=== PATIENT | female | born 1945 | race Caucasian/White ===

== ENCOUNTER 2019-07-06 19:21 | Inpatient (IN) | payer MEDICARE ==
[~2019-07-06] VITALS: Ht 167.6 cm; Wt 74.8 kg
--- NOTE | 2019-07-06 19:42 | NUR ---
PT CAME TO ER BIB RA C/O SOB. PT WAS ORIGINALLY 79% O2 SATURATION UPON ARRIVAL TO ED. PT IS PLACED ON NONREBREATHER OF 15L WITH 100% 02 SATURATION. PT IS ALERT AND AWAKE. PT IS ABLE TO ANSWER QUESTIONS AND RESPOND WITH WORDS AND NODDING. CONNECTED TO CARDIAC MONITORING.
--- NOTE | 2019-07-06 19:46 | NUR ---
RT AT BEDSIDE FOR BREATHING TREATMENT
--- NOTE | 2019-07-06 19:47 | NUR ---
BLOOD DRAWN AND SENT TO LAB
[2019-07-06 19:54] LABS: HEMOGLOBIN 7.3 g/dL (11.5-14.8); LYMPHOCYTES # (AUTO) 0.6 /CMM (0.8-4.8); NEUTROPHILS # (AUTO) 0.2 /CMM (1.8-8.9)
[2019-07-06 20:00] LABS: BASOPHILS % (AUTO) 0.1 % (0.0-2.0); EOSINOPHILS % (AUTO) 0.3 % (0.0-6.0); HEMATOCRIT 22 % (33-45); LYMPHOCYTES % (AUTO) 76.7 % (20.0-44.0); MEAN CORPUSCULAR HGB CONC 34 g/dl (31.0-36.0); MEAN CORPUSCULAR VOLUME 87 fL (82-100); NEUTROPHILS % (AUTO) 21.9 % (43.0-81.0); RED BLOOD CELL COUNT(AUTO) 2.48 MIL/uL (4.0-5.2)
[2019-07-06] MEDS ORDERED: IPRATROPIUM NEB FS 0.5 MG/2.5 ML AMPUL.NEB NEB ONE (20:00)
[2019-07-06] MEDS ORDERED: ALBUTEROL FS 2.5 MG/3 ML VIAL.NEB NEB ONE ×2 (20:00→21:00)
--- NOTE | 2019-07-06 20:02 | NUR ---
XRAY AT BEDSIDE
[2019-07-06 20:09] LABS: PLATELET COUNT (AUTO) 8 /CMM (150-450); WHITE BLOOD COUNT (AUTO) 0.8 K/uL (4.3-11.0)
[2019-07-06] MEDS ORDERED: methylPREDNISolone SOD SUCC 125 MG/2ML VIAL ONE (20:11)
[2019-07-06] MEDS ORDERED: IPRATROPIUM NEB FS 0.5 MG/2.5 ML AMPUL.NEB ONE (20:13)
[2019-07-06] MEDS ORDERED: ALBUTEROL FS 2.5 MG/3 ML VIAL.NEB ONE ×2 (20:13→20:41)
[2019-07-06 20:15] LABS: CARBON DIOXIDE 22 mmol/L (21-32); CHLORIDE 106 mmol/L (98-107); CREATININE 1.6 mg/dL (0.6-1.3); GLUCOSE 122 mg/dL (74-106); POTASSIUM 4.5 mmol/L (3.5-5.1); SODIUM SERUM 139 mmol/L (136-145); UREA NITROGEN, BLOOD 48 mg/dL (7-18)
[2019-07-06 20:19] LABS: ALANINE AMINOTRANSFERASE 70 U/L (12-78); ALBUMIN 1.9 g/dL (3.4-5.0); ALKALINE PHOSPHATASE 75 U/L (46-116); ASPARTATE AMINOTRANSFERASE 63 U/L (15-37); B-TYPE NATRIURETIC PEPTIDE 13738 PG/ML (0-125); BILIRUBIN,DIRECT 0.3 mg/dL (0.0-0.2); BILIRUBIN,TOTAL 0.5 mg/dL (0.2-1.0); TOTAL PROTEIN, SERUM 5.2 g/dL (6.4-8.2)
[2019-07-06] MEDS ORDERED: PIPERACILLIN /TAZOBACTAM 3.375 G VIAL IV ONE (20:28)
[2019-07-06] MEDS ORDERED: VANCOMYCIN 1 GM in IV D5W 250 ML IV ONE (20:30)
[2019-07-06] MEDS ORDERED: PIPERACILLIN /TAZOBACTAM 3.375 G in IV D5W 50 ML IV ONE (20:30)
[2019-07-06] MEDS ORDERED: methylPREDNISolone SOD SUCC 125 MG/2ML VIAL IV ONE (20:30)
[2019-07-06] MEDS ORDERED: IV NS 0.9% 1,000 ML BAG IV ONE (20:30)
[2019-07-06] MEDS ORDERED: VANCOMYCIN 1 GM VIAL ONE (20:35)
[2019-07-06] MEDS ORDERED: FILGRASTIM (300 MCG) 300 MCG/ML VIAL SQ STA (20:38)
[2019-07-06 21:22] LABS: BAND % (MANUAL) 1 % (0.0-5.0); LYMPHOCYTES % (MANUAL) 78 % (16-48); METAMYELOCYTES % 1 % (0-0); MONOCYTES % (MANUAL) 6 % (0-11.0); NEUTROPHILS % (MANUAL) 14 (42-76)
[2019-07-06] MEDS ORDERED: MAG HYDROX/AL HYDROX/SIMETH 30 ML UDC PO PRN (21:30)
[2019-07-06] MEDS ORDERED: ONDANSETRON HCL/PF 4 MG/2 ML VIAL IVP PRN (21:30)
[2019-07-06] MEDS ORDERED: HYDROCODONE/APAP 5/325MG 1 EACH TABLET PO PRN (21:30)
[2019-07-06] MEDS ORDERED: Z GUARD REMEDY 2 OZ OINT TP PRN (21:30)
[2019-07-06] MEDS ORDERED: MORPHINE SULFATE INJ 2 MG/ML DISP.SYRIN IV PRN (21:30)
[2019-07-06] MEDS ORDERED: ACETAMINOPHEN 325 MG TABLET PO PRN (21:30)
[2019-07-06] MEDS ORDERED: MAGNESIUM HYDROXIDE 30 ML UDC PO PRN (21:30)
[2019-07-06] MEDS ORDERED: ZOLPIDEM TARTRATE 5 MG TABLET PO PRN (21:30)
[2019-07-06] MEDS ORDERED: MORPHINE SULFATE INJ 2 MG/ML DISP.SYRIN ONE (21:37)
[2019-07-06] MEDS ORDERED: NOREPINEPHRINE 4 MG/4 ML AMPUL IV ONE (21:55)
[2019-07-06] MEDS ORDERED: MORPHINE SULFATE INJ 2 MG/ML DISP.SYRIN IV ONE (22:00)
[2019-07-06] MEDS ORDERED: NOREPINEPHRINE 8 MG in IV D5W 500 ML IV ONE (22:00)
--- NOTE | 2019-07-06 22:21 | NUR ---
SUPERVISOR TELEVISION CHASSIS REPAIR AT BEDSIDE FOR REDRAWING OF TROPONIN
--- NOTE | 2019-07-06 22:56 | NUR ---
US AT BEDSIDE
[2019-07-07] VITALS (59 sets, daily range): BP systolic 45–160; BP diastolic 15–119
--- NOTE | 2019-07-07 00:20 | NUR ---
REPORT GIVEN TO ED RN FOR ALANA.
--- NOTE | 2019-07-07 00:31 | NUR ---
URINE COLLECTED AND SENT TO LAB
[2019-07-07 00:36] LABS: APPEARANCE,URINE Clear (CLEAR); BILIRUBIN,URINE Negative (NEGATIVE); BLOOD, URINE Trace-intact Ery/uL (NEGATIVE); COLOR,URINE Yellow (YELLOW); KETONES,URINE Negative (NEGATIVE); LEUKOCYTE ESTERASE ,URINE Negative (NEGATIVE); NITRITE, URINE Negative (NEGATIVE); PROTEIN,URINE 100 mg/dl (NEGATIVE); UGLUCOSE Negative (NEGATIVE); UROBILINOGEN,URINE 0.2 EU/dL (0.2)
--- NOTE | 2019-07-07 00:53 | NUR ---
PT TRANSFERRED TO ICU FROM ER, WITHOUT COMPLICATION AND PATIENT REMAINED STABLE, AND PLACED BACK ON BIPAP WITH PREVIOUS SETTINGS. CHARGE NURSE ED AT BEDSIDE AWARE AND RECEIVED PATIENT.
[2019-07-07 01:07] LABS: BACTERIA,URINE None seen /HPF (None Seen); RBC,URINE 0-2 /HPF (0-2); SQUAMOUS EPITHELIAL CELL,UR Few /HPF (None Seen); WBC,URINE 0-2 /HPF (0-3)
--- NOTE | 2019-07-07 01:30 | NUR ---
RN NOTES ADMITTED PATIENT FROM ER WITH BIPAP 15/ RATE 14 FIO2 40% PLACED BY RT. AOX1 LETHARGIC UNABLE TO ANSWER COMPLEX QUESTION. DIAGNOSED WITH RESP. FAILURE, SEPSIS, SEV, NEUTROPENIA AND THROMBOCYTOPENIA PER DR. DAVEY. PLACED PATIENT IN REVERSE ISOLATION. WITH MULTIPLE PMH. ST ON TELE MONITOR. MULTIPLE DISCOLORATION PRESENT. IV SITE ON RH G 18 AND LFA G 22 INTACT AND PATENT. F/C DRAINED WITH WALLACE COLOR URINE. KEPT OFF FROM THE FLOOR. HGB 7.3 WITH ORDER TO GIVE 1 UNIT PRBC AND 2UNIT OF PLATELETS EMERGENCY TX. KEPT PT CLEAN AND DRY. NURSING MEASURES PROVIDED.
[2019-07-07] MEDS: methylPREDNISolone SOD SUCC 40 MG/ML VIAL IV SCH ×3 (01:57→11:05)
[2019-07-07] MEDS ORDERED: PIPERACILLIN /TAZOBACTAM 3.375 G VIAL IV ONE (02:14)
[2019-07-07] MEDS ORDERED: PIPERACILLIN /TAZOBACTAM 3.375 G in IV D5W 50 ML IV ONE (03:00)
[2019-07-07] MEDS ORDERED: NOREPINEPHRINE 4 MG/4 ML AMPUL IV ONE (03:17)
[2019-07-07] MEDS ORDERED: NOREPINEPHRINE 16 MG in IV D5W 500 ML IV PRN (03:30)
--- NOTE | 2019-07-07 03:30 | NUR ---
RN NOTES CALLED AND SPOKE WITH DR. DAVEY INFORMED THAT THE SPOUSE IS UNABLE TO REACH, PER MD PATIENT SPOUSE IS ALSO IN THE HOSPITAL. AND ITS OK TO TRANSFUSE BLOOD NOW FOR EMERGENCY SITUATION AND THEY WILL SIGN THE CONSENT.
--- NOTE | 2019-07-07 04:02 | NUR ---
RN NOTES STARTED FIRST BAG OF PLATELET. (SEE VS ON TRANSFUSION)
[2019-07-07 04:33] LABS: EOSINOPHILS % (AUTO) 0.1 % (0.0-6.0); LYMPHOCYTES # (AUTO) 0.6 /CMM (0.8-4.8); LYMPHOCYTES % (AUTO) 81.4 % (20.0-44.0); MEAN CORPUSCULAR HGB CONC 33 g/dl (31.0-36.0); MEAN CORPUSCULAR VOLUME 89 fL (82-100); MONOCYTES # (AUTO) 0.1 /CMM (0.1-1.30); MONOCYTES % (AUTO) 17.4 % (2.0-12.0); NEUTROPHILS % (AUTO) 1.1 % (43.0-81.0); RED BLOOD CELL COUNT(AUTO) 2.11 MIL/uL (4.0-5.2)
[2019-07-07 04:50] LABS: B-TYPE NATRIURETIC PEPTIDE 26794 PG/ML (0-125); CARBON DIOXIDE 22 mmol/L (21-32); CHLORIDE 108 mmol/L (98-107); CREATININE 1.9 mg/dL (0.6-1.3); GLUCOSE 96 mg/dL (74-106); MAGNESIUM 1.7 mg/dL (1.8-2.4); PHOSPHORUS 3.1 mg/dL (2.5-4.9); POTASSIUM 4.4 mmol/L (3.5-5.1); SODIUM SERUM 140 mmol/L (136-145); UREA NITROGEN, BLOOD 53 mg/dL (7-18)
[2019-07-07 04:58] LABS: CALCIUM, SERUM 6.3 mg/dL (8.5-10.1)
[2019-07-07 05:07] LABS: WHITE BLOOD COUNT (AUTO) 0.7 K/uL (4.3-11.0)
[2019-07-07 05:08] LABS: HEMATOCRIT 19 % (33-45); HEMOGLOBIN 6.2 g/dL (11.5-14.8); PLATELET COUNT (AUTO) 4 /CMM (150-450)
[2019-07-07 05:20] LABS: CHOLESTEROL 103 mg/dL (<200); HDL CHOLESTEROL 51 mg/dL (40-60); LDL 21 mg/dL (0-99); THYROID STIMULATING HORMONE 0.021 uIU/mL (0.358-3.74); TRIGLYCERIDES 95 mg/dL (30-150)
--- NOTE | 2019-07-07 05:45 | NUR ---
RN NOTES 1UNIT OF PLATELET TOLERATED WELL. STARTED 2ND BAG OF PLATELETS AFEBRILE. VSS ST HR 121 ON TELE MONITOR. NO SIGNS OF ADVERSE REACTION NOTED WILL CONT. TO MONITOR.
[2019-07-07] MEDS ORDERED: FEE PK DOSING 1 MIN EA MC ONE (06:49)
--- NOTE | 2019-07-07 07:00 | NUR ---
RN NOTES CONTINUE ON BIPAP, 2ND UNIT OF PLATELET DONE AND GISELE. WELL WITHOUT ADVERSE REACTION. REMAINED ST ON TELEMONITOR. LEVOPHED ONGOING TITRATED PROTOCOL ORDERED. AFEBRILE. LATEST HGB. 6.2 PRBC NOT GIVEN YET INDUE TO PLATELETS. AND AWAITING FOR PICC LINE TO INSERT. KEPT PT CLEAN AND DRY.. ENDORSED TO AM SHIFT TO TRANSFUSE 1 UNIT PRBC AND EMERGENCY TX AND FOLLOW UP PICC LINE INSERTION.
--- NOTE | 2019-07-07 07:30 | NUR ---
RN NOTE: Received patient in bed, lethargic and drowsy with Bipap support. Patient on reverse isolation due to neutropenia. HOB elevated. NPO status. Patient was noted sinus tachycardia on the broiler manager HR 120. (R) hand 18G was infusing Levophed @10 mcg/min to keep the SBP >90mmHg. Coles catheter was noted with very minimal urine output tea color in color draining to gravity. Afebrile. Skin was warm to touch, but (B) UE were noted cool to touch. Will continue to monitor the patient's condition.
--- NOTE | 2019-07-07 07:39 | NUR ---
RN NOTE: Called and spoke with Amarilys (medical records staff) from [facility] and requested for a POLST. Faxed number [phone] was given. Awaiting for the POLST copy.
--- NOTE | 2019-07-07 08:00 | NUR ---
RN NOTE: Patient's bedside monitor cables were replaced, and the BP cuff was placed on the patient's (R) calf because the patient had a (R) breast mastectomy and a superficial thrombosis on the (L) arm.
[2019-07-07 08:29] LABS: NEUTROPHILS % (MANUAL) 5 (42-76)
[2019-07-07 08:30] LABS: LYMPHOCYTES % (MANUAL) 87 % (16-48); MONOCYTES % (MANUAL) 8 % (0-11.0)
[2019-07-07] MEDS ORDERED: FUROSEMIDE 40 MG/4 ML VIAL IV SCH (09:00)
[2019-07-07] MEDS ORDERED: PANTOPRAZOLE 40 MG VIAL IV SCH (09:00)
[2019-07-07 09:07] LABS: ABG BASE EXCESS -8.9 mmol/L; ABG OXYGEN SATURATION 97.4 % (92.0-98.5); ABG PCO2 42.2 mmHg (35.0-45.0); ABG PH 7.241 (7.350-7.450); ABG PO2 128.8 mmHg (75.0-100.0); AaDO2 107.9 mmHg; COHb 0.4 % (0.5-1.5); MetHb 1.1 % (0.0-1.5); O2Hb 95.9 % (94.0-97.0); SITE, ABG Right Brachial; VENT MODE, BG 15/5 RR14 40%
[2019-07-07] MEDS ORDERED: Magnesium 1GM/D5W 100ML PREMIX 100 ML IV SCH (09:10)
--- NOTE | 2019-07-07 09:30 | NUR ---
RN NOTE: Received a POLST from the patient's facility and it showed full code and it was signed by the patient back on 07/03/2019. Dr. Rivas was at the nursing station informed about this information. Per Dr. Rivas, try to reach the patient's Saul so this POLST can be verified. Spoke with Saul, and he verbalized that the patient wished that she can get chest compressions (CPR), but no intubation due to her complex medical history. Per Saul, he wanted Dr. Rivas to speak with the patient's card processing clerk Dr. Lock to coordinate the best plan for the patient.
[2019-07-07] MEDS ORDERED: PIPERACILLIN /TAZOBACTAM 3.375 G in IV D5W 50 ML IV SCH (10:00)
[2019-07-07] MEDS ORDERED: DOSE PER PHARMACY VORIconazole/VFEND XX PRN (12:30)
--- NOTE | 2019-07-07 12:30 | NUR ---
RN NOTE: Dr. Rivas called and informed the RN that he spoke with Dr. Lock (surgery aid) that Dr. Lock agreed that the patient is not a candidate for intubation. Patient's code status remained DNI at this time. Nevin Martell DNP was made aware of this. Patient's [id number], [id number] and [id number] were all present at the bedside and Nevin Martell DNP spoke with them at the bedside regarding the patient's current condition. Main decision maker Saul was at the hospital himself, and exchanges of telephone calls were made to coordinate the patient's care.
--- NOTE | 2019-07-07 12:55 | NUR ---
RN NOTE: Patient's Saul gave a telephone consent for the PICC line insertion of the patient and it was verified with KENTRELL Durant. Informed consent was signed by Nevin Martell DNP and filed to the patient's chart. PICC line nurse Valerie was at the bedside to insert the PICC line.
--- NOTE | 2019-07-07 14:00 | NUR ---
RN NOTE: Patient's was still noted with hypotension despite the Levophed support. Per Nevin Martell, ANN MARIE ok to add Vasopressin at this time. Informed KENTRELL Durant CN about this new medication order. PICC line nurse still at the bedside and was still trying to insert a PICC line for the patient.
--- NOTE | 2019-07-07 14:25 | NUR ---
RN NOTE: Hospitalist Nevin Martell DNP was informed about the medication reconciliation per request of Henry, pharmacist.
--- NOTE | 2019-07-07 14:54 | NUR ---
RN NOTE: Hospitalist Nevin Martell DNP called and informed the nurse that she spoke with tom Hughes regarding the patient's current situation. And the , Saul made a decision to keep the patient comfortable, DC the Bipap machine and put her on O2 2L/min via NC, and give a Morphine 2mg IV X1 and Morphine 2mg IV [id number] PRN for comfort. Order, noted and carried out. RT Alexis was made aware of the following orders for the Bipap. Coordinated the new orders to Henry, pharmacist as well. Patient's [id number] and a family friend was at the bedside. Explained to them about the new orders from the hospitalist after speaking with Saul.
[2019-07-07] MEDS ORDERED: MORPHINE SULFATE INJ 2 MG/ML DISP.SYRIN IV PRN (15:00)
[2019-07-07] MEDS ORDERED: VASOPRESSIN INJ 50 UNIT in IV D5W 497.5 ML IV PRN (15:00)
[2019-07-07] MEDS ORDERED: MORPHINE SULFATE INJ 2 MG/ML DISP.SYRIN IV ONE (15:00)
[2019-07-07] MEDS ORDERED: VORICONAZOLE 400 MG in IV D5W 250 ML IV SCH (15:00)
--- NOTE | 2019-07-07 15:10 | NUR ---
RN NOTE: Patient was noted with a labored breathing, Morphine 2mg IV x1 per hospitalist's order was given. patient was still noted tachycardic, but noted with less work of breathing. Will continue to monitor. Family remained at the bedside.
--- NOTE | 2019-07-07 15:27 | NUR ---
RN NOTE PT ON COMFORT CARE. PT ASYSTOLIC, APNEIC, AREFLEXIVE. PRONOUNCED AT 1527. FAMILY AT BEDSIDE.
--- NOTE | 2019-07-07 15:27 | NUR ---
RN NOTE: Patient was noted asystole on the tip puncher, no viable vital sign was noted. No heart beat was noted. Time of was pronounced at this time by KENTRELL Durant. Family remained at the bedside, and they called tom Hughes about the patient's time of . Gave the family privacy with the patient at this time.
--- NOTE | 2019-07-07 15:37 | NUR ---
RN NOTE: Called and spoke with Matilda from [facility] and patient was not a candidate as a donor. Patient was released by [facility] with referral number [id number].
--- NOTE | 2019-07-07 16:30 | NUR ---
RN NOTE: Post mortem care was rendered to the patient. Confirmed with tom Hughes that the patient will be send to the [facility] if no family member will be expected to see the patient.
--- NOTE | 2019-07-07 17:00 | NUR ---
RN NOTE: Patient was sent to the [facility] accompanied by the hospital security administrator with proper labels on the (R) great toe and outside the body bag.
[2019-07-07] MEDS ORDERED: MEROPENEM 1 G in IV NS 0.9% 100 ML IV SCH ×2 (18:00→22:00)
[2019-07-07] MEDS ORDERED: VANCOMYCIN 0.75 GM in IV D5W 250 ML IV SCH (20:00)
[2019-07-08] MEDS ORDERED: VORICONAZOLE 200 MG in IV D5W 250 ML IV SCH (15:00)
== END 2019-07-07 15:28 | disposition expired | DRG 871 ==
LOC: ER 19:30 → ICU 23:51
PROVIDERS: ADMIT Student in an Organized Health Care Education/Training Program; ATTEND Nurse Practitioner Acute Care
PROC: 06H033Z Insertion of Infusion Device into Inferior Vena Cava, Percutaneous Approach (ICD-10-PCS; principal; 2019-07-07)
PROC: B549ZZA Ultrasonography of Inferior Vena Cava, Guidance (ICD-10-PCS; 2019-07-07)
PROC: 30233N1 Transfusion of Nonautologous Red Blood Cells into Peripheral Vein, Percutaneous Approach (ICD-10-PCS; 2019-07-07)
PROC: 30233R1 Transfusion of Nonautologous Platelets into Peripheral Vein, Percutaneous Approach (ICD-10-PCS; 2019-07-07)
PROC: 5A09357 Assistance with Respiratory Ventilation, Less than 24 Consecutive Hours, Continuous Positive Airway Pressure (ICD-10-PCS; 2019-07-07)
DX: A41.9 Sepsis, unspecified organism (principal); J18.9 Pneumonia, unspecified organism; J96.01 Acute respiratory failure with hypoxia; E43 Unspecified severe protein-calorie malnutrition; I21.A1 Myocardial infarction type 2; J96.02 Acute respiratory failure with hypercapnia; N17.0 Acute kidney failure with tubular necrosis; Z51.5 Encounter for palliative care; R65.21 Severe sepsis with septic shock; J44.0 Chronic obstructive pulmonary disease with (acute) lower respiratory infection; C34.90 Malignant neoplasm of unspecified part of unspecified bronchus or lung; D68.69 Other thrombophilia; B44.9 Aspergillosis, unspecified; D61.818 Other pancytopenia; K92.2 Gastrointestinal hemorrhage, unspecified; E21.3 Hyperparathyroidism, unspecified; E86.0 Dehydration; Z87.891 Personal history of nicotine dependence; M81.0 Age-related osteoporosis without current pathological fracture; E03.9 Hypothyroidism, unspecified; C73 Malignant neoplasm of thyroid gland; I11.0 Hypertensive heart disease with heart failure; I50.9 Heart failure, unspecified; R74.0 Nonspecific elevation of levels of transaminase and lactic acid dehydrogenase [LDH]; E88.09 Other disorders of plasma-protein metabolism, not elsewhere classified; Z68.26 Body mass index [BMI] 26.0-26.9, adult; C50.919 Malignant neoplasm of unspecified site of unspecified female breast; D64.9 Anemia, unspecified
CPT/HCPCS: 36415; 36600; 71045-TC; 74018; 76770-TC; 80048-TC; 80061-TC; 80076-TC; 81000-TC; 82803-TC; 83605-TC; 83735-TC; 83880; 84100-TC; 84443-TC; 84484-TC; 85025-TC; 85730-TC; 86850-TC; 86921-TC; 87040-TC; 87081-TC; 87086-TC; 87186-TC; 94660; C1751; C1769; C9113; G0378; J1442; J1940; J2185; J2270; J2543; J2920; J2930; J3370; J3465; J3475; J3490; J7030; J7050; J7060; P9016-BL; P9034-BL